=== PATIENT | male | born 1995 | race Caucasian/White ===

== ENCOUNTER 2018-05-08 10:36 | Emergency (ER) | payer OTHER ==
[~2018-05-08] VITALS: Ht 172.7 cm; Wt 91.2 kg
[2018-05-08 10:40] VITALS: BP 144/83
--- NOTE | 2018-05-08 10:43 | NUR ---
PT AMBULATES TO BED 6
--- NOTE | 2018-05-08 10:45 | NUR ---
c/o injury to left 2nd digit with sawsaw power tool x 2 days ago requesting medical clearance to return to work no drainage noted---unknown last tetanus hx--asthma rx---albuterol
--- NOTE | 2018-05-08 10:57 | NUR ---
Patient being evaluated by physician at bedside.
[2018-05-08] MEDS ORDERED: NEOMYCIN/POLYMYXIN/BACITRACIN 0.9 GM/1 PKT TP ONE (11:25)
[2018-05-08 11:40] VITALS: BP 130/70
--- NOTE | 2018-05-08 11:40 | NUR ---
Patient discharged with v/s stable. Written and verbal after care instructions given and explained. Patient verbalized understanding. Ambulatory with steady gait. All questions addressed prior to discharge. Advised to follow up with PMD.
== END 2018-05-08 11:40 | disposition home or self-care (01) ==
LOC: MED 10:36
DX: S61.203A Unspecified open wound of left middle finger without damage to nail, initial encounter (principal); J45.909 Unspecified asthma, uncomplicated; W26.8XXA Contact with other sharp object(s), not elsewhere classified, initial encounter; Y93.89 Activity, other specified; Y92.89 Other specified places as the place of occurrence of the external cause; Y99.8 Other external cause status
CPT/HCPCS: 99283

== ENCOUNTER 2019-01-01 13:54 | Emergency (ER) | payer OTHER ==
[~2019-01-01] VITALS: Ht 172.7 cm; Wt 104.3 kg
[2019-01-01 13:56] VITALS: BP 99/57
--- NOTE | 2019-01-01 14:07 | NUR ---
PT BIB SELF WITH C/O PAINFUL URINATION X 3 DAYS. STATES TO HAVE DARK URINE, HAS BURNING SENSATION WHILE PEE. DENIES PAIN OR TRAUMA AT THIS TIME. PER PT, HIS GIRL FRIEND HAD BEEN DIAGNOSED WITH CALMIDIYA AND GONORRHEA THREE DAYS AGO, FEELS TO HAVE THE SAME SYMPTOM HIS GIRL FRIEND. DARK COLOR URINE. WANT TO CHECK STD. E RMD TO SEE THE PT. DENIES ANY CHILLS, FEVER, N AND V. MED HX: DENIES
[2019-01-01] MEDS: cefTRIAXone 250 MG in LIDOCAINE MPF 1% - 5 mL VIAL 0.9 ML IM ONE (14:40)
[2019-01-01] MEDS: AZITHROMYCIN 250 MG TAB PO ONE (14:41)
[2019-01-01 14:49] VITALS: BP 99/57
--- NOTE | 2019-01-01 14:51 | NUR ---
Patient discharged with v/s stable. Written and verbal after care instructions given and explained. Patient alert, oriented and verbalized understanding of instructions. Ambulatory with steady gait. All questions addressed prior to discharge. ID band removed. Patient advised to follow up with PMD. Opportunity to ask questions provided and answered.
[2019-01-04 15:12] LABS: CHLAMYDIA TRACHOMATIS AMP DNA Negative (Negative)
== END 2019-01-01 14:51 | disposition home or self-care (01) ==
LOC: MED 13:54
DX: R30.0 Dysuria (principal); J45.909 Unspecified asthma, uncomplicated
CPT/HCPCS: 36415; 81002; 87491; 96372; 99283; J0696; J2001

== ENCOUNTER 2019-01-23 20:07 | Emergency (ER) | payer OTHER ==
[~2019-01-23] VITALS: Ht 175.3 cm; Wt 110.4 kg
[2019-01-23 20:14] VITALS: BP 126/68
[2019-01-23 20:41] VITALS: BP 126/68
== END 2019-01-23 22:03 | disposition left against medical advice (07) ==
LOC: MED 20:07
DX: R42 Dizziness and giddiness (principal); Z53.21 Procedure and treatment not carried out due to patient leaving prior to being seen by health care provider
CPT/HCPCS: 81002

== ENCOUNTER 2021-06-23 00:26 | Emergency (ER) | payer OTHER ==
[~2021-06-23] VITALS: Ht 172.7 cm; Wt 117.9 kg
[2021-06-23 01:00] VITALS: BP 108/58
--- NOTE | 2021-06-23 01:00 | NUR ---
TO BED AMBULATORY
--- NOTE | 2021-06-23 01:10 | NUR ---
26 Y/O MALE BIB SELF, C/O LACERATION TO RIGHT HAND RING FINGER. PATIENT PRESENTS TO ED WITH LACERATION W/ BLEEDING CONTROLLED. PT STATES HE WAS CUTTING A STEAK AT HOME FOR DINNER WHEN HE SLIPPED AND CUT HIS FINGER. DENIES N/V/D; SKIN IS PINK/WARM/DRY; AAOX4 WITH EVEN AND STEADY GAIT; LUNGS CLEAR BL; HR EVEN AND REGULAR; PT DENIES ANY FEVER, CP, SOB, OR COUGH AT THIS TIME; PATIENT STATES STINGING PAIN OF 8/10 AT THIS TIME; VSS; PATIENT POSITIONED FOR COMFORT; HOB ELEVATED; BEDRAILS UP X2; BED DOWN. ER MD MADE AWARE OF PT STATUS. HX: ASTHMA, PEDIATRIC HEART MURMUR NKDA DENIES MEDS
--- NOTE | 2021-06-23 01:11 | NUR ---
Dr. Mahan examining patient.
[2021-06-23] MEDS ORDERED: LIDOCAINE MPF 1% 10 MG/ML VIAL INJ ONE (01:20)
--- NOTE | 2021-06-23 01:44 | NUR ---
PT SIGNED CONSENT FOR TdAP AND RECIEVED VAX AT THIS TIME. VAX INFORMATION SHEET LEFT WITH PT.
--- NOTE | 2021-06-23 02:27 | NUR ---
XRAY AT BEDSIDE
--- NOTE | 2021-06-23 03:00 | NUR ---
NHAN PATEL AT BEDSIDE PERFORMING PROCEDURE.
[2021-06-23] MEDS ORDERED: LIDOCAINE MPF 1% 10 ML ONE (03:03)
[2021-06-23] MEDS ORDERED: LIDOCAINE MPF 1% 5 ML ONE (03:10)
[2021-06-23 03:42] VITALS: BP 108/58
--- NOTE | 2021-06-23 03:42 | NUR ---
Patient discharged with v/s stable. Written and verbal after care instructions given and explained. Patient verbalized understanding. Ambulatory with steady gait. All questions addressed prior to discharge. Advised to follow up with PMD. A/OX4, VSS, UNLABORED BREATHING, AMBULATORY, AND CALM DEMEANOR.
== END 2021-06-23 03:42 | disposition home or self-care (01) ==
LOC: MED 00:26
DX: S61.214A Laceration without foreign body of right ring finger without damage to nail, initial encounter (principal); F17.210 Nicotine dependence, cigarettes, uncomplicated; J45.909 Unspecified asthma, uncomplicated; Z71.6 Tobacco abuse counseling; W26.0XXA Contact with knife, initial encounter; Y93.89 Activity, other specified; Y92.090 Kitchen in other non-institutional residence as the place of occurrence of the external cause; Y99.8 Other external cause status
CPT/HCPCS: 12031; 73140; 90471; 90715; 99284; J2001; Q0092

== ENCOUNTER 2021-07-21 21:20 | Emergency (ER) | payer OTHER ==
[~2021-07-21] VITALS: Ht 172.7 cm; Wt 117.9 kg
[2021-07-21 21:37] VITALS: BP 158/90
--- NOTE | 2021-07-21 22:32 | NUR ---
Dr. Mahan at [facility] to exam patient.
--- NOTE | 2021-07-21 22:33 | NUR ---
Patient came to ER. C/O STI testing x today. Patient denies STI symptoms, request to STI test. A/O,X4, denies penile pain or discharge.
--- NOTE | 2021-07-21 22:58 | NUR ---
Called patient-no show
--- NOTE | 2021-07-21 23:22 | NUR ---
Called patient - second time- No show.
--- NOTE | 2021-07-21 23:30 | NUR ---
PATIENT ELOPED FROM FACILITY. DISCHARGE INSTRUCTIONS NOT GIVEN TO PATIENT. DR. Mahan NOTIFIED.
== END 2021-07-21 23:30 | disposition left against medical advice (07) ==
LOC: MED 21:20
DX: F52.8 Other sexual dysfunction not due to a substance or known physiological condition (principal); Z11.3 Encounter for screening for infections with a predominantly sexual mode of transmission
CPT/HCPCS: 99281